=== PATIENT | male | born 1985 | race Caucasian/White ===

== ENCOUNTER 2020-12-03 06:03 | Day surgery (SDC) | payer OTHER ==
[2020-11-28 15:03] VITALS: BMI 29.2
[2020-12-03] MEDS ORDERED: BUPIVACAINE HCL/EPINEPHRINE/PF 30 ML VIAL IJ ONE (07:12)
[2020-12-03] MEDS ORDERED: KETOROLAC TROMETHAMINE 30 MG/1 ML VIAL ONE (07:30)
[2020-12-03] MEDS ORDERED: DEXAMETHASONE SOD PHOSPHATE 4 MG/1 ML VIAL ONE (07:30)
[2020-12-03] MEDS ORDERED: LIDOCAINE HCL 2% JELLY (5 ML/TUBE) ONE (07:30)
[2020-12-03] MEDS ORDERED: ONDANSETRON 4 MG/2 ML VIAL ONE (07:30)
[2020-12-03] MEDS ORDERED: LIDOCAINE HCL/PF 2% SDV 5ML VIAL ONE (07:30)
[2020-12-03] MEDS ORDERED: PROPOFOL 20 ML ONE ×3 (07:30)
[2020-12-03] MEDS ORDERED: SUCCINYLCHOLINE CHLORIDE 200 MG/10 ML SYRINGE ONE (07:31)
[2020-12-03] MEDS ORDERED: MIDAZOLAM HCL 2 MG/2 ML SINGLE DOSE VIAL ONE (07:31)
[2020-12-03] MEDS ORDERED: SEVOFLURANE 250 ML BTL ONE (08:17)
[2020-12-03] MEDS ORDERED: PROMETHAZINE HCL 25 MG/1 ML VIAL IVPUSH PRN (08:55)
[2020-12-03] MEDS ORDERED: ONDANSETRON 4 MG/2 ML VIAL IVPUSH PRN (08:55)
[2020-12-03] MEDS ORDERED: oxyCODONE HCL 5 MG TABLET PO PRN ×2 (08:55)
[2020-12-03 09:02] VITALS: TEMP 97.7
[2020-12-03] MEDS ORDERED: oxyCODONE HCL 5 MG TABLET ONE ×2 (09:10→10:18)
[2020-12-03 10:38] VITALS: PULSE 69
[2020-12-03 10:42] VITALS: BP 141/81
== END 2020-12-03 11:00 | disposition home or self-care (01) ==
LOC: FASU 06:03
PROVIDERS: ATTEND Orthopaedic Surgery
PROC: 0SND4ZZ Release Left Knee Joint, Percutaneous Endoscopic Approach (ICD-10-PCS; principal; 2020-12-03 08:17)
DX: M25.862 Other specified joint disorders, left knee (principal); Z98.890 Other specified postprocedural states
CPT/HCPCS: 88304-TC; 94760